=== PATIENT | female | born 1945 ===

== ENCOUNTER 2017-01-30 05:56 | Day surgery (SDC) | payer MEDICARE ==
[2017-01-28 11:17] VITALS: BMI 33.2
[2017-01-30] MEDS ORDERED: Lactated Ringer's 1,000 ML IV ONE (06:45)
[2017-01-30] MEDS ORDERED: Oxytocin 20 units in LR 0 ML IV ONE (07:27)
[2017-01-30] MEDS ORDERED: Midazolam 2 MG/2 ML VIAL ONE (07:28)
[2017-01-30] MEDS ORDERED: Propofol 10 mg/ml Inj (20 ML) ONE (07:28)
--- NOTE | 2017-01-30 07:42 | CP.SDSHP ---
Same Day Surgery H & P - History Proposed Procedure: D/C - Previous Medical/Surgical History Cardiac: Hypertension Endocrine/Metabolic: Diabetes Neuro: Other Comments: herniated lumbar disc, gastritis and fibroid uterus Previous Surgical History: Knee surgery 2005, hysteroscopy 2015 - Allergies Allergies: Allergies No Known Allergies Allergy (Verified 02/19/16 10:02) - Physical Exam General Appearance: well nourished, NAD Mental Status: Alert & Oriented x3 Heart: WNL Lungs: WNL GI: WNL - {Optional Preform as Required} Breast: WNL Abdomen: WNL ANIMAL NUTRITIONIST: Other Other Pertinent Findings: uterus upper limit - Impression Impression: Postmenopausal bleeding/fibroids - Date & Time Date: 01/30/17 Time: 07:44 Short Stay Discharge - Short Stay Discharge Admitting Diagnosis/Reason for Visit: N95.0 Disposition: HOME/ ROUTINE Referrals: Piero Armenta [Primary Care Provider] -
[2017-01-30] MEDS ORDERED: Lactated Ringer's 1,000 ML IV SCH (08:16)
[2017-01-30] MEDS ORDERED: Oxycodone/Acetaminophen 5/325 mg Tab PO PRN (08:18)
--- NOTE | 2017-01-30 08:23 | CP.SDSHP ---
Same Day Surgery H & P - Allergies Allergies: Allergies No Known Allergies Allergy (Verified 02/19/16 10:02) Short Stay Discharge - Short Stay Discharge Admitting Diagnosis/Reason for Visit: N95.0 Referrals: Piero Armenta [Primary Care Provider] - Follow-up: 2 wks in office Additional Instructions (Diet, Activity): pelvic and bed rest Progress Note/Discharge Note with Instructions: recovered well from anesthesia no operative complications Will D/C home with instructions and follow up office 2 wks
[2017-01-30 09:40] VITALS: RESP 20
[2017-01-30 10:09] VITALS: O2SAT 98
[2017-01-30 11:32] VITALS: BP 121/67; PULSE 87; TEMP 97.8
--- NOTE | 2017-02-03 07:31 | OP ---
PROCEDURE DATE: 01/30/2017 PREOPERATIVE DIAGNOSIS: Postmenopausal bleeding. POSTOPERATIVE DIAGNOSIS: Postmenopausal bleeding plus pending pathology report. PROCEDURE PERFORMED: Fractional dilatation and curettage. SURGEON: Dr. Lentz. ANESTHESIA USED: General per Dr. Blackburn. ESTIMATED BLOOD LOSS: Minimal. DRAINS USED: None. REPLACEMENTS USED: None. FINDINGS: 1. Uterus mobile, irregular, about 8-week size, bulky to palpation. 2. Cervix closed, long, posterior, no gross lesion to visualization. 3. No adnexal masses to palpation bilaterally. 4. Uterus sounded to 9 cm. 5. Fractional dilatation and curettage performed without any complications. PROCEDURE: The patient was taken to the operating room and placed on the operating table in a supine position. Following induction of general anesthesia, the patient was then replaced in a dorsal lith otomy position. Perineal and genital areas were draped and prepped in the usual sterile manner. At this time, a sterile catheter was then placed into the bladder and clear fluid was then evacuated fro m the bladder. The patient was then examined under anesthesia with some of the above findings. Heav y weighted speculum was then placed in the posterior wall of the vagina exposing the cervix. The ant erior lip of the cervix was then grasped using a single-tooth tenaculum and retracted anteriorly. At this time, the endocervical canal was then curetted using a Greer curette. Minimal amount of tissue obtained and sent to pathology. The endocervical canal was then gently dilated using Scooby s dilators in an increasing size manner. At this time, the endometrial cavity was sounded and sounde d to 9 cm using a uterine sound. Following this, curettage was then performed very gingerly. The en dometrial cavity appeared bumpy and irregular. Minimal amount of tissue obtained and sent to patholo gy for proper pathological evaluation. Single-tooth tenaculum was then removed. No bleeding noted. The patient tolerated the procedure well. There were no complications. She was transferred to the recovery room in satisfactory condition. Sponge, instrument and sharp counts were correct x 3. Tad Lentz MD cc: 71 TT: 02/03/2017 07:30:34 tn
== END 2017-01-30 11:40 | disposition home or self-care (01) ==
LOC: H.OPSURG 05:56
PROVIDERS: ATTEND Specialist
DX: N95.0 Postmenopausal bleeding (principal); E11.9 Type 2 diabetes mellitus without complications; I10 Essential (primary) hypertension
CPT/HCPCS: 58120; 82948; 88305; J0694; J2001; J2250; J2704; J3010; J7030; J7120

== ENCOUNTER 2017-04-21 10:59 | Inpatient (IN) | payer MEDICARE ==
[2017-04-21 11:29] VITALS: BMI 29.2
[2017-04-21] MEDS ORDERED: Lactated Ringer's 1,000 ML IV ONE (12:00)
[2017-04-21 12:13] LABS: BASO # 0.1 K/uL (0.0-0.2); BASO % 0.7 % (0.0-2.0); EOS # 0.2 K/uL (0.0-0.7); EOS % 2.7 % (0.0-4.0); HEMOGLOBIN 12.9 g/dL (12.0-16.0); LYMPH # 2.4 K/uL (1.0-4.3); LYMPH % 32.5 % (20.0-40.0); MEAN CELL VOLUME 91.2 fl (81.0-99.0); MEAN CORPUSCULAR HEMOGLOBIN 30.3 pg (27.0-31.0); MEAN CORPUSCULAR HGB CONC 33.2 g/dL (33.0-37.0); MEAN PLATELET VOLUME 8.3 fl (7.2-11.7); MONO # 0.7 K/uL (0.0-0.8); MONO % 9.9 % (0.0-10.0); NEUT # 4.1 K/uL (1.8-7.0); NEUT % 54.2 % (50.0-75.0); NRBC % 0.1 % (0.0-0.0); RBC 4.25 Mil/uL (3.80-5.20); WHITE BLOOD COUNT 7.5 K/uL (4.8-10.8)
[2017-04-21 12:28] LABS: PARTIAL THROMBOPLASTIN TIME 26.8 Seconds (25.6-37.1); PROTHROMBIN TIME 11.1 Seconds (9.8-13.1)
[2017-04-21 12:30] LABS: BLOOD UREA NITROGEN 18 mg/dl (7-17); CALCIUM 9.2 mg/dL (8.4-10.2); GFR AFRICAN-AMERICAN > 60; GFR NON-AFRICAN AMERICAN > 60
[2017-04-21] MEDS ORDERED: Bupivacaine 0.25%-Epinephrine 1:200,000 (30 ml) Inj ONE (15:49)
[2017-04-21] MEDS ORDERED: Sevoflurane - Inhalation Anesthetic Liq (250 ml) ONE (15:52)
[2017-04-21] MEDS ORDERED: Propofol 10 mg/ml Inj (20 ML) ONE (15:52)
[2017-04-21] MEDS ORDERED: Succinylcholine 200 mg/10 ml Inj IV ONE (15:52)
[2017-04-21] MEDS ORDERED: Lidocaine 4% (Laryng-O-Jet) Kit MM ONE (15:52)
[2017-04-21] MEDS ORDERED: Midazolam 2 MG/2 ML VIAL ONE (15:52)
[2017-04-21] MEDS ORDERED: Rocuronium 10 mg/ml (5 ml) ONE ×2 (15:53→17:16)
[2017-04-21] MEDS ORDERED: Lidocaine Hydrochloride 5 ML INJ ONE (15:53)
[2017-04-21] MEDS ORDERED: Neostigmine Methylsulfate 2 MG/2 ML ML IV ONE (15:59)
[2017-04-21] MEDS ORDERED: Sodium Chloride 0.9% 1,000 ML IV ONE ×2 (16:26→20:00)
[2017-04-21] MEDS ORDERED: Chlorhexidine Gluconate 2OZ GEL TP ONE (16:49)
[2017-04-21] MEDS ORDERED: Bupivacaine 0.25%-Epinephrine 1:200,000 (30 ml) Inj IJ ONE (16:52)
[2017-04-21] MEDS ORDERED: HEMOSTATIC MATRIX 10 ML DIS.NEEDLE TOP ONE (17:40)
--- NOTE | 2017-04-21 19:09 | PCM.OP ---
Operative Report - Operative Report Date of Surgery/Procedure: 04/21/17 Time of Surgery/Procedure: 19:07 Surgeon: hosea marmolejo md Weight Control Lecturer: chicho dyer DO pgy2 Anesthesia/Sedation: general with ET tube Pre-Operative Diagnosis: Chronic pelvic pain. Fibroid uterus. prolapse uterus. urinary incontinence Post-Operative Diagnosis: Chronic pelvic pain. Fibroid uterus. prolapse uterus. urinary incontinence. extensive adhesions bowel and peritoneal adhesions Indication for Surgery: chronic pelvic pain. prolapse uterus wtih urinary incontinece and failed conservatgive managment. abormal uterine bleeding in recent post Operative Findings: bulky enlarge uterus. multiple fibroids some calcified large myomas. uterus size approx 15 weeks size. extensive adhesions Procedure/Operation Description: Total robotic hysterectomy BSO >250g. uterosacral ligament suspenssion. laparotomy. Enteroylsis. cystoscopy. Detailed Operative Report. This is a 71 years old female with symptomatic enlarged fibroid uterus, uterine prolapse, urinary incontinence urgency. The patient completed an extensive preoperative workup, which included an ultrasound, as well as a pap smear and an endometrial biopsy, chemistry and hematology studies. The patient reported these symptoms and problems as debilitating, and adversely affecting her quality of life. Following a period of failed conservative management, and patient decision was made to proceed with a more invasive approach to address the above noted problems. A decision was finally made to proceed with a total robotic assisted hysterectomy, bilateral salpingoophorectomy, and vaginal vault suspension. A detailed description of this robotic procedure was given to the patient, all risks and benefits of the surgical modality was reviewed, printed material was also given to the patient regarding robotic surgery. The patient fully understood all the risks and benefits and elected to proceed with this proposed procedure. After proper consent was obtained from the patient was taken to the operating room, proper patient identification was completed. She was placed in dorsal lithotomy position; general anesthesia was induced without difficulty. Her legs were placed in adjustable Zac stirrups. Careful attention was placed not to over-flex or over-rotate the lower extremities at the hip or the knee joints. She was prepped and draped appropriately for robotic assisted hysterectomy. Hinojosa catheter was inserted under sterile conditions. A weighted speculum was placed in the vagina, anterior lip of cervix was grasped with a tenaculum, and a [employer]-care uterine manipulator was inserted through the cervix and secured. The weighted speculum and tenaculum were removed from the patient's vagina and attention was turned to the patient's abdomen. Local anesthetic solutions of 0.25% Marcaine with epinephrine were utilized to infiltrate the skin prior to all abdominal skin incisions. A total of 15 mL of 0.25% Marcaine was utilized throughout the procedure. While tenting the abdominal wall, a Veres needle was inserted through the umbilicus and a pneumoperitoneum was obtained. Approximately 3 cm above the umbilicus in the midline, a 1 cm incision was made with a scalpel and a trocar and sleeve were introduced. A robotic camera was inserted and an initial survey of the patient' s abdomen revealed an enlarged bulky uterus ultimately 14-15 weeks' size, boggy in appearance. Both ovaries appeared normal with normal appearing fallopian tubes. The patient was placed in Trendelenburg position ready for a da Roberto Carlos robotic system to be docked. 3 robotic ports were utilized for this procedure. The first robotic port was placed on the patient's right side approximately 8 cm left lateral to the camera port, the second robotic port was placed 8 cm right lateral to the camera port and the third robotic port was placed approx. 8 cm lateral the second port. All ports were approx. aligned along the same horizontal line on the abdomen in an arch like fashion. An activities assistant port was placed 8 cm left lateral to the first robotic port. For the activities assistant and camera ports we utilized the Versa step trocar system. All trocars were inserted under direct visualization. The placement of the trocars was all accomplished under careful and meticulous placement under direct visualization. Following the placement of all trocars, the da Roberto Carlos robotic system was docked in a parallel method without difficulty. The following instruments were utilized for this procedure: the bipolar cautery device, a monopolar fabi and finally a ProGrasp. Meticulous and careful lysis of adhesions as well as enterolysis was accomplished utilizing the monopolar fabi and bipolar device. Prior to the start of the hysterectomy, adhesions involving the pelvic sidewalls in close proximity to both ureters, exploration of the ureters and their courses was necessary. Following meticulous and careful dissection into the pelvic sidewall, both ureters were explored and visualized, peristalsis bilaterally. On the patient's right side, the IP and the round ligaments were identified cauterized and transected, the broad ligament was divided all the way down to the utero cervical junction bladder flap was then created by transecting the visceroperitoneum over the bladder reflection. In a similar fashion, the left round ligament, IP ligament and broad ligament were cauterized sealed and transected, taken down to the level of the cervical uterine junction. Uterine vessels on both sides were sealed and transected. The Uterosacral ligaments were sealed and transected. The monopolar fabi and PK were utilized to complete the colpotomy incision around the care vaginal ring. Excellent hemostasis was noted. The uterus, cervix, ovaries and fallopian tubes were delivered transvaginal through the colpotomy incision and sent to pathology for permanent analysis. On delivery of uterus tubes and ovaries through the colpotomy incision, a large calcified myoma was enucleated in the process approximately 8-10 cm in diameter this myoma could not be delivered via the colpotomy incision despite several attempts. The calcified myoma was left in the abdominal cavity for later extraction through a small Pfannenstiel incision. The colpotomy incision was closed with 2-0 v LOC in a continuous fashion with excellent hemostasis. The vaginal vault suspension was achieved by suspending the vaginal cuff to the base of the uterosacral ligaments bilaterally. For uterosacral ligament suspension portion of the procedure, the ureters were once again identified to avoid possible compromise or kinking while suspending the vaginal vault. A 2-0 permanent suture material (Eckley-Daryn) was utilized to suspend the uterosacral ligaments from the base to the vaginal vault cuff incision including both anterior and posterior aspect of the colpotomy incision. Utilizing a 3-0 Monocryl suture, the peritoneum over the colpotomy incision and uterosacral ligaments was re-approximated in a continuous fashion. The abdomen was throughout irrigated and cleared of all clots and debris. FloSeal as well as Interceed was applied to the incision sites. Excellent hemostasis was again noted. All robotic and laparoscopic instruments removed under direct visualization. The robotic arms were undocked , and a da Roberto Carlos robotic system was wheeled away from the patient's bedside. Both activities assistant and camera ports were closed at the fascial layer utilizing a 2- 0 Vicryl suture material in interrupted fashion. Pneumoperitoneum was reduced and all skin incisions were closed utilizing 4-0 Monocryl in a subcutaneous fashion. Dermabond was applied to all incisions. A small Pfannenstiel incision was made, the fascia was excised in the midline and the rectus muscles were then entered and the peritoneal cavity was entered and a calcified myoma was extracted from the patient's abdomen and sent to pathology. The peritoneum was closed with 2-0 chromic, the fascia was closed with 0 Vicryl in continuous fashion and the skin was closed with 4-0 Monocryl in subcutaneous fashion. Pressure dressing was applied to this incision. Due to the complexity of this hysterectomy and colpopexy, a diagnostic cystoscopy was completed. The Hinojosa catheter was removed; the bladder was distended with approximately 350 cc of normal saline. A 30 cystoscope was introduced and a survey of the bladder anatomy was completed. The base, and the dome of the bladder appeared normal, both ureteral orifices appeared normal and were efluxing urine freely. The urethra appeared normal. A Hinojosa catheter was reinserted. Vaginal packing was inserted to be removed the next morning. Patient emerged from general anesthesia without difficulty, and was taken to recovery room in stable condition. Prior to incision the patient received antibiotics, prior to closure sponge lap and needle counts were correct x2. Estimated Blood Loss: 25 Blood Replaced: n Sponge/Instrument Count: correct Drains: none Complications: none Specimen: uterus cervix tubes and ovaraies Discharge & Condition: next day
[2017-04-21] MEDS ORDERED: Sodium Chloride 0.9% 1,000 ML IV SCH ×2 (19:15→19:30)
[2017-04-21] MEDS: HYDROmorphone 0.5 mg/0.5 ml ISec IVP PRN ×2 (19:20→20:05)
--- NOTE | 2017-04-21 19:23 | PCM.SURG1 ---
Surgeon's Initial Post Op Note - Surgeon's Notes Surgeon: Dr. Patrick Delivery Recruiter: Maricruz Pike PGY2 Type of Anesthesia: General Endo Pre-Operative Diagnosis: Fibroids, vaginal prolaps, urinary incontinence Operative Findings: large calcified fibroids, adhesions Post-Operative Diagnosis: Same Operation Performed: Total robotic hysterectomy BSO >250g. uterosacral ligament suspenssion. laparotomy. Enteroylsis. cystoscopy Specimen/Specimens Removed: uterus Estimated Blood Loss: EBL {In ML}: 20 Blood Products Given: N/A Drains Used: No Drains Post-Op Condition: Good Date of Surgery/Procedure: 04/21/17 Time of Surgery/Procedure: 19:23
[2017-04-21 21:05] LABS: HEMOGLOBIN 11.9 g/dL (12.0-16.0); MEAN CORPUSCULAR HEMOGLOBIN 30.7 pg (27.0-31.0); MEAN CORPUSCULAR HGB CONC 33.4 g/dL (33.0-37.0); RBC 3.88 Mil/uL (3.80-5.20); RED CELL DISTRIBUTION WIDTH 13.2 % (11.5-14.5)
[2017-04-21 21:15] LABS: BLOOD UREA NITROGEN 16 mg/dl (7-17); CALCIUM 8.2 mg/dL (8.4-10.2); GFR AFRICAN-AMERICAN > 60; GFR NON-AFRICAN AMERICAN > 60
[2017-04-21 21:59] LABS: WHITE BLOOD COUNT 20.7 K/uL (4.8-10.8)
[2017-04-22] MEDS: ceFAZolin 2 GM in Sodium Chloride 0.9% 100 ML IVPB SCH ×3 (00:37→17:39)
--- NOTE | 2017-04-22 07:57 | CP.PCM.DIS ---
Provider - Provider Date of Admission: 04/21/17 19:03 Attending physician: Stef Patrick MD Primary care physician: Piero Armenta MD Time Spent in preparation of Discharge (in minutes): 45 Diagnosis - Discharge Diagnosis (1) Fibroids Status: Acute Hospital Course - Lab Results Lab Results: Most Recent Lab Values WBC 20.7 K/uL (4.8-10.8) H D 04/21/17 20:59 RBC 3.88 Mil/uL (3.80-5.20) 04/21/17 20:59 Hgb 11.9 g/dL (12.0-16.0) L 04/21/17 20:59 Hct 35.7 % (34.0-47.0) 04/21/17 20:59 MCV 92.0 fl (81.0-99.0) 04/21/17 20:59 MCH 30.7 pg (27.0-31.0) 04/21/17 20:59 MCHC 33.4 g/dL (33.0-37.0) 04/21/17 20:59 RDW 13.2 % (11.5-14.5) 04/21/17 20:59 Plt Count 278 K/uL (130-400) 04/21/17 20:59 MPV 8.3 fl (7.2-11.7) 04/21/17 11:45 Neut % (Auto) 54.2 % (50.0-75.0) 04/21/17 11:45 Lymph % (Auto) 32.5 % (20.0-40.0) 04/21/17 11:45 [place] % (Auto) 9.9 % (0.0-10.0) 04/21/17 11:45 Eos % (Auto) 2.7 % (0.0-4.0) 04/21/17 11:45 Baso % (Auto) 0.7 % (0.0-2.0) 04/21/17 11:45 Neut # 4.1 K/uL (1.8-7.0) 04/21/17 11:45 Lymph # 2.4 K/uL (1.0-4.3) 04/21/17 11:45 [place] # 0.7 K/uL (0.0-0.8) 04/21/17 11:45 Eos # 0.2 K/uL (0.0-0.7) 04/21/17 11:45 Baso # 0.1 K/uL (0.0-0.2) 04/21/17 11:45 PT 11.1 Seconds (9.8-13.1) 04/21/17 11:45 INR 1.0 (0.9-1.2) 04/21/17 11:45 APTT 26.8 Seconds (25.6-37.1) 04/21/17 11:45 Sodium 139 mmol/l (132-148) 04/21/17 20:59 Potassium 4.2 MMOL/L (3.6-5.0) 04/21/17 20:59 Chloride 107 mmol/L (98-107) 04/21/17 20:59 Carbon Dioxide 25 mmol/L (22-30) 04/21/17 20:59 Anion Gap 11 (10-20) 04/21/17 20:59 BUN 16 mg/dl (7-17) 04/21/17 20:59 Creatinine 0.7 mg/dL (0.7-1.2) 04/21/17 20:59 Est GFR ( Amer) > 60 04/21/17 20:59 Est GFR (Non-Af Amer) > 60 04/21/17 20:59 POC Glucose (mg/dL) 184 mg/dL (65-110) H 04/21/17 20:15 Random Glucose 167 mg/dL (65-105) H 04/21/17 20:59 Calcium 8.2 mg/dL (8.4-10.2) L 04/21/17 20:59 Blood Type O POSITIVE 04/21/17 11:45 Blood Type Confirm O POSITIVE 04/21/17 12:17 Antibody Screen Negative 04/21/17 11:45 BBK History Checked No verified bt 04/21/17 11:45 - Hospital Course Hospital Course: Pt had chronic history of pelvic pain with large fibroids. Pt came to [facility] , underwent robortic hysterctomy. FOund to have large calcified fibroids. Pt tolerated it well. The following day, pt Voided. Tolerated diet. Ambulated. Pain controlled. Pt was instructed to f/u with Dr. Patrick in 1 -2 week. Discharge Exam - Head Exam Head Exam: ATRAUMATIC, NORMAL INSPECTION, NORMOCEPHALIC - Eye Exam Eye Exam: EOMI, Normal appearance, PERRL Pupil Exam: NORMAL ACCOMODATION, PERRL - Respiratory Exam Respiratory Exam: Clear to PA & Lateral, NORMAL BREATHING PATTERN, UNREMARKABLE - Cardiovascular Exam Cardiovascular Exam: REGULAR RHYTHM - GI/Abdominal Exam GI & Abdominal Exam: Soft. absent: Distended, Firm, Guarding, Hernia, Rebound, Rigid Additional comments: Incision C/D/I - Neurological Exam Neurological exam: Alert, CN II-XII Intact, Normal Gait, Oriented x3, Reflexes Normal - Psychiatric Exam Psychiatric exam: Normal Affect, Normal Mood - Skin Skin Exam: Dry, Intact, Normal Color, Warm Discharge Plan - Follow Up Plan Condition: GOOD Disposition: HOME/ ROUTINE Instructions: Robot Assisted Laparoscopic Hysterectomy (DC) Additional Instructions: f/u with Dr. Patrick in 1-2 weeks. Ok to take shower tomorrow. Keep glue on. No heavy lifting for 1 month No sexual activity for 1 month Referrals: Piero Armenta [Primary Care Provider] -
[2017-04-22 10:14] LABS: HEMOGLOBIN 11.1 g/dL (12.0-16.0); MEAN CELL VOLUME 92.2 fl (81.0-99.0); MEAN CORPUSCULAR HEMOGLOBIN 30.8 pg (27.0-31.0); MEAN CORPUSCULAR HGB CONC 33.4 g/dL (33.0-37.0); RBC 3.61 Mil/uL (3.80-5.20); RED CELL DISTRIBUTION WIDTH 13.1 % (11.5-14.5); WHITE BLOOD COUNT 12.1 K/uL (4.8-10.8)
--- NOTE | 2017-04-22 13:19 | CP.PCM.PCO ---
Physician Communication Note - Physician Communication Note Physician Communication Note: will keep pt one more night for post op pain
[2017-04-22] MEDS: Insulin Regular 100 units/ml SC SCH ×2 (18:33→22:07)
[2017-04-22] MEDS ORDERED: Morphine 4 MG/ML VIAL IVP PRN (21:15)
[2017-04-22] MEDS ORDERED: DOXEPIN HCL PO SCH (22:00)
[2017-04-23] MEDS: Insulin Regular 100 units/ml SC SCH (06:37)
[2017-04-23 08:12] VITALS: BP 151/82; PULSE 102; RESP 20; TEMP 98.2; O2SAT 97
[2017-04-23] MEDS ORDERED: Pantoprazole 40 mg EC Tab PO SCH (09:00)
[2017-04-23] MEDS ORDERED: Patient's Own Med (Glimepiride [Amaryl] 4 MG) PO SCH (09:00)
[2017-04-23] MEDS ORDERED: METFORMIN HCL PO SCH (09:00)
[2017-04-23] MEDS ORDERED: [UNRECOGNIZED DRUG - OTHER] PO SCH (09:00)
[2017-04-23] MEDS ORDERED: GlipiZIDE 10 mg SR Tab PO SCH (09:00)
[2017-04-23] MEDS ORDERED: Oxycodone/Acetaminophen 5/325 mg Tab PO PRN (09:15)
[2017-04-23 10:44] LABS: HEMOGLOBIN 11.6 g/dL (12.0-16.0); MEAN CELL VOLUME 90.8 fl (81.0-99.0); MEAN CORPUSCULAR HEMOGLOBIN 30.8 pg (27.0-31.0); MEAN CORPUSCULAR HGB CONC 33.9 g/dL (33.0-37.0); RBC 3.75 Mil/uL (3.80-5.20); RED CELL DISTRIBUTION WIDTH 13.2 % (11.5-14.5); WHITE BLOOD COUNT 11.5 K/uL (4.8-10.8)
--- NOTE | 2017-04-23 11:16 | CP.PCM.DIS ---
Provider - Provider Date of Admission: 04/21/17 19:03 Attending physician: Stef Patrick MD Primary care physician: Piero Armenta MD Time Spent in preparation of Discharge (in minutes): 45 Diagnosis - Discharge Diagnosis (1) Fibroids Status: Acute Hospital Course - Lab Results Lab Results: Most Recent Lab Values WBC 11.5 K/uL (4.8-10.8) H 04/23/17 10:15 RBC 3.75 Mil/uL (3.80-5.20) L 04/23/17 10:15 Hgb 11.6 g/dL (12.0-16.0) L 04/23/17 10:15 Hct 34.1 % (34.0-47.0) 04/23/17 10:15 MCV 90.8 fl (81.0-99.0) 04/23/17 10:15 MCH 30.8 pg (27.0-31.0) 04/23/17 10:15 MCHC 33.9 g/dL (33.0-37.0) 04/23/17 10:15 RDW 13.2 % (11.5-14.5) 04/23/17 10:15 Plt Count 257 K/uL (130-400) 04/23/17 10:15 MPV 8.3 fl (7.2-11.7) 04/21/17 11:45 Neut % (Auto) 54.2 % (50.0-75.0) 04/21/17 11:45 Lymph % (Auto) 32.5 % (20.0-40.0) 04/21/17 11:45 [place] % (Auto) 9.9 % (0.0-10.0) 04/21/17 11:45 Eos % (Auto) 2.7 % (0.0-4.0) 04/21/17 11:45 Baso % (Auto) 0.7 % (0.0-2.0) 04/21/17 11:45 Neut # 4.1 K/uL (1.8-7.0) 04/21/17 11:45 Lymph # 2.4 K/uL (1.0-4.3) 04/21/17 11:45 [place] # 0.7 K/uL (0.0-0.8) 04/21/17 11:45 Eos # 0.2 K/uL (0.0-0.7) 04/21/17 11:45 Baso # 0.1 K/uL (0.0-0.2) 04/21/17 11:45 PT 11.1 Seconds (9.8-13.1) 04/21/17 11:45 INR 1.0 (0.9-1.2) 04/21/17 11:45 APTT 26.8 Seconds (25.6-37.1) 04/21/17 11:45 Sodium 139 mmol/l (132-148) 04/21/17 20:59 Potassium 4.2 MMOL/L (3.6-5.0) 04/21/17 20:59 Chloride 107 mmol/L (98-107) 04/21/17 20:59 Carbon Dioxide 25 mmol/L (22-30) 04/21/17 20:59 Anion Gap 11 (10-20) 04/21/17 20:59 BUN 16 mg/dl (7-17) 04/21/17 20:59 Creatinine 0.7 mg/dL (0.7-1.2) 04/21/17 20:59 Est GFR ( Amer) > 60 04/21/17 20:59 Est GFR (Non-Af Amer) > 60 04/21/17 20:59 POC Glucose (mg/dL) 156 mg/dL (65-110) H 04/23/17 05:58 Random Glucose 167 mg/dL (65-105) H 04/21/17 20:59 Calcium 8.2 mg/dL (8.4-10.2) L 04/21/17 20:59 Blood Type O POSITIVE 04/21/17 11:45 Blood Type Confirm O POSITIVE 04/21/17 12:17 Antibody Screen Negative 04/21/17 11:45 BBK History Checked No verified bt 04/21/17 11:45 - Hospital Course Hospital Course: Pt had chronic history of pelvic pain with large fibroids. Pt came to [facility] , underwent robortic hysterctomy. FOund to have large calcified fibroids. Pt tolerated it well. pt Voided. Tolerated diet. Ambulated. Pain controlled. Pt was instructed to f/u with Dr. Patrick in 1 -2 week. Discharge Exam - Head Exam Head Exam: ATRAUMATIC, NORMAL INSPECTION, NORMOCEPHALIC - Eye Exam Eye Exam: EOMI, Normal appearance, PERRL Pupil Exam: NORMAL ACCOMODATION, PERRL - Respiratory Exam Respiratory Exam: UNREMARKABLE - Cardiovascular Exam Cardiovascular Exam: REGULAR RHYTHM - GI/Abdominal Exam GI & Abdominal Exam: Soft, Tenderness. absent: Distended Additional comments: Incision C/D/I - Exam Exam: NORMAL INSPECTION - Extremities Exam Extremities exam: full ROM, normal inspection - Neurological Exam Neurological exam: Alert, CN II-XII Intact, Normal Gait, Oriented x3, Reflexes Normal - Psychiatric Exam Psychiatric exam: Normal Affect, Normal Mood - Skin Skin Exam: Dry, Intact, Normal Color, Warm Discharge Plan - Follow Up Plan Condition: GOOD Disposition: HOME/ ROUTINE Instructions: Robot Assisted Laparoscopic Hysterectomy (DC) Additional Instructions: f/u with Dr. Patrick in 1-2 weeks. Ok to take shower tomorrow. Keep glue on. No heavy lifting for 1 month No sexual activity for 1 month Referrals: Piero Armenta [Primary Care Provider] -
== END 2017-04-23 12:00 | disposition home or self-care (01) | DRG 743 ==
LOC: H.OPSURG 10:59 → H.TEL 19:03 → H.MEDSURG1 04-22 19:21
PROVIDERS: ADMIT Obstetrics & Gynecology; ATTEND Obstetrics & Gynecology
PROC: 0UT94ZZ Resection of Uterus, Percutaneous Endoscopic Approach (ICD-10-PCS; principal; 2017-04-21 12:45)
DX: D25.9 Leiomyoma of uterus, unspecified (principal); K66.0 Peritoneal adhesions (postprocedural) (postinfection); N81.4 Uterovaginal prolapse, unspecified; R32 Unspecified urinary incontinence; N85.2 Hypertrophy of uterus; R10.2 Pelvic and perineal pain